=== PATIENT | male | born 1965 | race Hispanic/Latino ===

== ENCOUNTER → 2024-05-13 | Outpatient (CLI) | payer BC ==
[2024-05-13 12:30] LABS: ALBUMIN 3.9 g/dL (3.5-5.0); BILIRUBIN,TOTAL 0.8 mg/dL (0.2-1.0); CREATININE 1.2 mg/dL (0.5-1.3); TOTAL PROTEIN, SERUM 7.6 g/dL (6.0-8.3)
== END | disposition home or self-care (01) ==
LOC: LAB 08:26
PROVIDERS: ATTEND Internal Medicine Cardiovascular Disease
DX: R77.8 Other specified abnormalities of plasma proteins (principal)
CPT/HCPCS: 36415; 80053

== ENCOUNTER → 2024-05-15 | Outpatient (CLI) | payer BC ==
[~2024-05-15] MED LIST: IOHEXOL 350 MG/ML 100ML INFUS..BTL IV ONE; IOHEXOL-350 50ML VIAL IV ONE
--- NOTE | 2024-05-15 10:17 | HMCIMG ---
CT CARDIAC ANGIO W/CONT. CCTA REASON: OTHER SPECIFIED ABN OF PLASMA PROTEINS COMPARISON: None TECHNIQUE: Images are obtained through the heart in the axial plane before and during bolus IV contrast infusion, 100 cc Omnipaque 350. 2-D and 3-D multiplanar reconstruction images were then performed. The injection had to be repeated once due to motion artifact on the first sequence, total contrast volume was 200 cc. FINDINGS: This dictation is for the noncardiac findings only. Cardiac and coronary artery findings are reported separately. Visualized portions of the lungs are clear. There is normal-appearing pulmonary interstitium. There is no hilar or mediastinal lymphadenopathy. Chest wall structures appear unremarkable. IMPRESSION: 1. Unremarkable noncardiac portions of CT cardiac angiography.
== END | disposition home or self-care (01) ==
LOC: RAH 07:44
PROVIDERS: ATTEND Internal Medicine Cardiovascular Disease
DX: R77.8 Other specified abnormalities of plasma proteins (principal)
CPT/HCPCS: 75574; Q9967 ×2

== ENCOUNTER → 2025-01-21 | Outpatient (CLI) | payer BC ==
[~2025-01-21] MED LIST changes: -IOHEXOL 350 MG/ML 100ML INFUS..BTL IV ONE; -IOHEXOL-350 50ML VIAL IV ONE; +IOHEXOL-350 75 ML VIAL IV ONE
--- NOTE | 2025-01-21 13:29 | HMCIMG ---
EXAM: CT Abdomen and Pelvis with Intravenous Contrast CLINICAL HISTORY: 59-year-old male with lower abdominal pain TECHNIQUE: Axial computed tomography images of the abdomen and pelvis with intravenous contrast. Dose reduction technique was used including one or more of the following: automated exposure control, adjustment of mA and kV according to patient size, and/or iterative reconstruction. CONTRAST: 75 mL of IV contrast, standard dose of oral contrast COMPARISON: None provided. FINDINGS: LUNG BASES: Atelectasis of the lung bases. LIVER: Unremarkable. GALLBLADDER AND BILE DUCTS: Unremarkable. No ductal dilation. PANCREAS: Unremarkable. SPLEEN: Unremarkable. ADRENAL GLANDS: Unremarkable. KIDNEYS, URETERS, AND BLADDER: Symmetric excretion of contrast in both kidneys seen. Small right renal cyst, follow up with ultrasound. No hydronephrosis or nephrolithiasis. No ureteral or bladder calculi. STOMACH AND BOWEL: No obstruction. Small hiatal hernia. Oral contrast is seen in the stomach, small bowel, and colon to the level of the sigmoid colon. Acute sigmoid diverticulitis is seen with multiple inflamed diverticula. Images numbered 71 through 78 of 128. Negative for perforation or abscess. APPENDIX: Normal appendix. No CT evidence for appendicitis. PERITONEUM: No free fluid. No free air. LYMPH NODES: No lymphadenopathy. REPRODUCTIVE: Unremarkable as visualized. VASCULATURE: No aortic aneurysm. ABDOMINAL WALL AND SOFT TISSUES: Midline anterior abdominal wall hernia containing mesenteric fat in the oblique regions and associated intraabdominal wall. BONES: No fracture or suspicious osseous abnormality. IMPRESSION: 1. Acute sigmoid diverticulitis without perforation or abscess. 2. Small hiatal hernia. 3. Midline anterior abdominal wall hernia containing mesenteric fat in the oblique regions and associated intraabdominal wall. /Raysal
== END | disposition home or self-care (01) ==
LOC: RAH 08:16
PROVIDERS: ATTEND Internal Medicine Gastroenterology
DX: N28.1 Cyst of kidney, acquired (principal); K44.9 Diaphragmatic hernia without obstruction or gangrene; K57.32 Diverticulitis of large intestine without perforation or abscess without bleeding; K43.9 Ventral hernia without obstruction or gangrene; J98.11 Atelectasis; R10.30 Lower abdominal pain, unspecified
CPT/HCPCS: 74177; Q9967